=== PATIENT | female | born 1950 | race American Indian/Alaskan Native ===

== ENCOUNTER 2017-04-05 08:41 | Outpatient (CLI) | payer MEDICARE ==
--- NOTE | 2017-04-12 11:46 | Vascular Lab Report ---
CAROTID DUPLEX STUDY: RIGHT PSVEDV CCA PROX:[id number] CCA DIST:8529 ICA PROX:54129 ICA MID:9032 ICA DIST:7429 ECA: 6011 VERT: 53 18 LEFT PSVEDV CCA PROX:35127 CCA DIST:7622 ICA PROX:6119 ICA MID:6019 ICA DIST:6520 ECA: 5913 VERT: 47 19 REASON FOR EXAM: Right carotid artery bruit. COMMENTS ON THE RIGHT: Doppler frequency analysis is consistent with 50 to 79 percent diameter reduction of the internal carotid artery. A moderate amount of plaque is seen. The common carotid artery is patent. The external carotid artery is patent. The vertebral artery has antegrade flow. COMMENTS ON THE LEFT: Doppler frequency analysis is consistent with 16 to 49 percent diameter reduction of the internal carotid artery. Minimal amount of plaque is seen. The common carotid artery is patent. The external carotid artery is patent. The vertebral artery has antegrade flow. 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 16 to 49% diameter reduction in the left internal carotid artery. Consider repeat carotid artery duplex in 12 months.
== END 2017-04-05 08:42 | disposition home or self-care (01) ==
LOC: VAS 08:41
PROVIDERS: ATTEND Internal Medicine
DX: I65.23 Occlusion and stenosis of bilateral carotid arteries (principal)
CPT/HCPCS: 93880